=== PATIENT | male | born 1990 | race Caucasian/White ===

== ENCOUNTER 2016-10-31 21:17 | Emergency (ER) | payer OTHER ==
[2016-10-31 21:22] VITALS: BP 138/67; PULSE 71; RESP 16; TEMP 98.2; O2SAT 99
--- NOTE | 2016-10-31 21:29 | ED PDOC ---
HPI: Wound Care - HPI Time Seen by Provider: 10/31/16 21:25 Chief Complaint (Nursing): Abnormal Skin Integrity Chief Complaint (Provider): Abnormal Skin Integrity History Per: Patient Exam Limitations: no limitations Onset/Duration Of Symptoms: Hrs (prior to arrival ) Additional Complaint(s): Phillip Peñaloza, 26 year old male presents to the ED with a left thumb laceration via knife occurring at work prior to arrival. Of note, the patients Tetanus is up to date. PMD: None Provided Past Medical History Reviewed: Historical Data, Nursing Documentation, Vital Signs Vital Signs: Last Vital Signs Temp 98.2 F 10/31/16 21:18 Pulse 71 10/31/16 21:18 Resp 16 10/31/16 21:18 BP 138/67 10/31/16 21:18 Pulse Ox 99 10/31/16 21:18 - Medical History PMH: Anxiety - Family History Family History: States: Unknown Family Hx - Immunization History Hx Tetanus Toxoid Vaccination: No Hx Influenza Vaccination: No Hx Pneumococcal Vaccination: No - Home Medications Home Medications: Ambulatory Orders Medication Instructions Recorded Alprazolam [Xanax] 1 mg PO BID 03/11/15 - Allergies Allergies/Adverse Reactions: Allergies Allergy/AdvReac Type Severity Reaction Status Date / Time No Known Allergies Allergy Verified 03/11/15 21:55 Review of Systems ROS Statement: Except As Marked, All Systems Reviewed And Found Negative Musculoskeletal: Positive for: Hand Pain (left thumb laceration ) Physical Exam - Reviewed Nursing Documentation Reviewed: Yes Vital Signs Reviewed: Yes - Physical Exam Appears: Positive for: Well, Non-toxic, No Acute Distress Head Exam: Positive for: ATRAUMATIC, NORMAL INSPECTION, NORMOCEPHALIC Extremity: Positive for: Normal ROM (of left thumb), Other (laceration - inch, partial thickness, no active bleeding). Negative for: Swelling (to left thumb) Neurologic/Psych: Positive for: Alert, Oriented - ECG O2 Sat by Pulse Oximetry: 99 (RA) Pulse Ox Interpretation: Normal Procedure: Wound Repair - Indications Indication(s):: Laceration - Location Finger:: Left, Thumb Dimensions Length cm: 1 inch - Anesthetic Technique Local/Regional Anesthetic:: Lidocaine 1% (without epi; 2 ccs) - Irrigated Irrigated with ml of normal saline: 100 ccs of normal saline - Complexity Complexity:: Simple (one layer) (interrupted) - Wound repair method Sutures:: # (7), Size (5.0), Type (nylon), Technique (splint applied ) - Patient tolerated procedure Patient Tolerated Procedure:: Well Medical Decision Making Medical Decision Making: Impression: laceration to left thumb Plan: * Wound Repair. See procedure. Scribe Attestation: Documented by Jennie Guevara, acting as a scribe for [place]a [place] PA-C. Provider Scribe Attestation: All medical record entries made by the Scribe were at my direction and personally dictated by me. I have reviewed the chart and agree that the record accurately reflects my personal performance of the history, physical exam, medical decision making, and the department course for this patient. I have also personally directed, reviewed, and agree with the discharge instructions and disposition. Disposition - Clinical Impression Clinical Impression: Laceration of finger - Patient ED Disposition Is Patient to be Admitted: No Counseled Patient/Family Regarding: Studies Performed, Diagnosis, Need For Followup - Disposition Disposition: Routine/Home Disposition Time: 21:50 Condition: GOOD Instructions: Care For Your Stitches (ED), Laceration (ED), Finger Laceration ( ED) Forms: [facility] ED School/Work Excuse
== END 2016-10-31 22:12 | disposition home or self-care (01) ==
LOC: H.ER 21:17
DX: S61.012A Laceration without foreign body of left thumb without damage to nail, initial encounter (principal); F41.9 Anxiety disorder, unspecified; W26.0XXA Contact with knife, initial encounter; Y99.0 Civilian activity done for income or pay

== ENCOUNTER 2016-11-05 18:58 | Emergency (ER) | payer OTHER ==
[2016-11-05 19:08] VITALS: BP 121/82; PULSE 98; RESP 16; TEMP 97.9; O2SAT 100
--- NOTE | 2016-11-05 19:26 | ED PDOC ---
HPI: Wound Care - HPI Time Seen by Provider: 11/05/16 19:21 Chief Complaint (Nursing): Suture/Staple Removal Chief Complaint (Provider): suture removal History Per: Patient Exam Limitations: no limitations Additional Complaint(s): 26yo M in Ed for eval of suture removal. pt denies drainage fever swellling chills pt admits he has kept splint on however states he has been sweating much making sutured area moist.. Past Medical History Reviewed: Historical Data, Nursing Documentation, Vital Signs Vital Signs: Last Vital Signs Temp 97.9 F 11/05/16 19:07 Pulse 98 H 11/05/16 19:07 Resp 16 11/05/16 19:07 BP 121/82 11/05/16 19:07 Pulse Ox 100 11/05/16 19:07 - Medical History PMH: Anxiety - Family History Family History: States: Unknown Family Hx - Immunization History Hx Tetanus Toxoid Vaccination: No Hx Influenza Vaccination: No Hx Pneumococcal Vaccination: No - Home Medications Home Medications: Ambulatory Orders Medication Instructions Recorded Alprazolam [Xanax] 1 mg PO BID 03/11/15 - Allergies Allergies/Adverse Reactions: Allergies Allergy/AdvReac Type Severity Reaction Status Date / Time No Known Allergies Allergy Verified 03/11/15 21:55 Review of Systems ROS Statement: Except As Marked, All Systems Reviewed And Found Negative Skin: Positive for: Other (sutures) Physical Exam - Reviewed Nursing Documentation Reviewed: Yes Vital Signs Reviewed: Yes - Physical Exam Appears: Positive for: Well, Non-toxic, No Acute Distress Skin: Positive for: Normal Color, Warm, DRY Cardiovascular/Chest: Positive for: Regular Rate, Rhythm Respiratory: Positive for: CNT, Normal Breath Sounds Extremity: Positive for: Other (finger: 1st digit. no swelling sutures in place no wound dehescience noted. no swelling noted no erythema noted. no tenderness. wound not yet healed. will require 3days and to make sure wound does not get wet. ) Neurologic/Psych: Positive for: Alert, Oriented - ECG O2 Sat by Pulse Oximetry: 100 Medical Decision Making Medical Decision Making: pt will get suture removal in 3days. Disposition - Clinical Impression Clinical Impression: Removal of suture - Patient ED Disposition Is Patient to be Admitted: No Counseled Patient/Family Regarding: Diagnosis, Need For Followup - Disposition Disposition: Routine/Home Disposition Time: 19:30 Condition: STABLE Additional Instructions: return in 3 days for suture removal Instructions: Stitches Removal (ED) Forms: [facility] ED School/Work Excuse
== END 2016-11-05 20:18 | disposition home or self-care (01) ==
LOC: H.ER 18:58
DX: Z48.02 Encounter for removal of sutures (principal); F41.9 Anxiety disorder, unspecified

== ENCOUNTER 2016-11-09 12:49 | Emergency (ER) | payer OTHER ==
[2016-11-09 12:55] VITALS: BP 117/70; PULSE 83; RESP 17; TEMP 97.7; O2SAT 100
--- NOTE | 2016-11-09 13:30 | ED PDOC ---
HPI: Wound Care - HPI Time Seen by Provider: 11/09/16 12:58 Chief Complaint (Nursing): Suture/Staple Removal History Per: Patient Additional Complaint(s): Pt is here for suture removal in L thumb done on 10/31/2016. Offers no complaints. Denies fever, pain, discharge. Past Medical History Reviewed: Historical Data, Nursing Documentation, Vital Signs Vital Signs: Last Vital Signs Temp 97.7 F 11/09/16 12:53 Pulse 83 11/09/16 12:53 Resp 17 11/09/16 12:53 BP 117/70 11/09/16 12:53 Pulse Ox 100 11/09/16 12:53 - Medical History PMH: Anxiety - Family History Family History: States: No Known Family Hx - Immunization History Hx Tetanus Toxoid Vaccination: No Hx Influenza Vaccination: No Hx Pneumococcal Vaccination: No - Home Medications Home Medications: Ambulatory Orders Medication Instructions Recorded Alprazolam [Xanax] 1 mg PO BID 03/11/15 - Allergies Allergies/Adverse Reactions: Allergies Allergy/AdvReac Type Severity Reaction Status Date / Time No Known Allergies Allergy Verified 11/09/16 12:52 Review of Systems ROS Statement: Except As Marked, All Systems Reviewed And Found Negative Physical Exam - Physical Exam Appears: Positive for: Well, Non-toxic, No Acute Distress Extremity: Positive for: Other (L thumb with sutures in place without dehiscence , erythema, discharge, or swelling; FROM actively of L thumb) - ECG O2 Sat by Pulse Oximetry: 100 - Progress ED Course And Treament: Amy podiatry resident, assisted PA with suture removal. Steri-strips placed over wound. Disposition - Clinical Impression Clinical Impression: Removal of suture - Patient ED Disposition Is Patient to be Admitted: No - Disposition Disposition: Routine/Home Disposition Time: 13:30 Condition: STABLE Instructions: Stitches Removal (ED) Forms: [facility] ED School/Work Excuse
== END 2016-11-09 13:47 | disposition home or self-care (01) ==
LOC: H.ER 12:49
DX: Z48.02 Encounter for removal of sutures (principal); F41.9 Anxiety disorder, unspecified